=== PATIENT | male | born 1990 | race African-American/Black ===

== ENCOUNTER 2019-08-01 16:32 | Emergency (ER) | payer BC, OTHER ==
[~2019-08-01] VITALS: Ht 172.7 cm; Wt 80.7 kg
[2019-08-01 17:12] VITALS: BP 150/91
[2019-08-01] MEDS ORDERED: SUDOGEST30 MG PO (17:15)
[2019-08-01] MEDS ORDERED: FLONASE 0.05%50 MCG NASAL (17:15)
== END 2019-08-01 17:20 | disposition home or self-care (01) ==
LOC: ER 16:32
DX: J06.9 Acute upper respiratory infection, unspecified (principal); J32.9 Chronic sinusitis, unspecified